=== PATIENT | male | born 1955 | race Caucasian/White ===

== ENCOUNTER 2018-07-23 11:02 | Outpatient (CLI) | payer OTHER ==
[~2018-07-23 11:02] MED LIST: Iopamidol 370 76% 100 ML VIAL ONE
[2018-07-23 11:39] LABS: Estimated GFR-MDRD - POC Greater than 90
--- NOTE | 2018-07-24 08:02 | CT ---
CT Abdomen Pelvis W Con: 07/23/2018 12:00 AM CLINICAL INFORMATION: Right flank pain for 4 months and weight loss COMPARISON: None. Procedure: Multiple contiguous axial images were obtained and a CT of the abdomen and pelvis with IV contrast. O ral contrast was administered. Coronal reformats were performed. FINDINGS: Lower Chest: There is a small to moderate right pleural effusion with adjacent atelectasis. Abdomen: Liver: within normal limits. Bile Ducts: Normal caliber. Gallbladder: No calcified gallstones. Normal caliber wall. Pancreas: within normal limits. Spleen: within normal limits. Adrenals: within normal limits. Kidneys: within normal limits. Pelvis: Reproductive Organs: No pelvic masses. Ureters: within normal limits. Bladder: within normal limits. Peritoneum: No ascites or free air, no fluid collection. Bowel: Normal caliber. Mesentery and Retroperitoneum: No enlarged mesenteric or retroperitoneal lymph nodes. Vessels: Atherosclerotic calcifications. Abdominal Wall: within normal limits. Bones: within normal limits. IMPRESSION: 1. No evidence of acute intraabdominal\pelvic abnormality. 2. Right pleural effusion with adjacent atelectasis
== END 2018-07-23 11:03 | disposition home or self-care (01) ==
LOC: BICCT 11:02
DX: R10.9 Unspecified abdominal pain (principal); R63.4 Abnormal weight loss; J90 Pleural effusion, not elsewhere classified; J98.11 Atelectasis
CPT/HCPCS: 74177; 82565; Q9967

== ENCOUNTER 2018-09-15 08:54 | Outpatient (CLI) | payer OTHER | END 2018-09-15 08:55 | disposition home or self-care (01) | PROVIDERS: ATTEND Specialist | DX: I69.891 Dysphagia following other cerebrovascular disease (principal); R13.12 Dysphagia, oropharyngeal phase; R13.13 Dysphagia, pharyngeal phase | CPT/HCPCS: 74230 ==

== ENCOUNTER 2018-09-16 13:20 | Outpatient (CLI) | payer OTHER ==
[2018-09-16 14:51] LABS: Estimated GFR-MDRD - POC Greater than 90
--- NOTE | 2018-09-16 15:35 | MRI ---
EXAM BRAIN MRI WITH AND WITHOUT CONTRAST: 09/16/18 HISTORY: Difficulty swallowing x1.5 years. Symptoms have worsened recently. COMPARISON: None. TECHNIQUE: Brain MRI is performed with and without intravenous gadolinium administration. Multisequential, multi planar imaging is performed. FINDINGS: The calvarium has a normal T1 narrow signal intensity. No hemorrhage on the axial gradient echo sequ ence. No parenchymal mass, mass effect or midline shift. Brain volume, age appropriate. Cortical oakley-white matter differentiation is preserved. Ventricles and sulci are patent and symmetric. No significant T2 or FLAIR white matter hyperintensity. Central arterial flow voids are maintained. Associated diffusion. Adequate aeration of the visualized sinuses and mastoid air cells. Minimal paranasal sinuses mucosal thickening. No pathologic enhancement of the brain parenchyma. IMPRESSION: Unremarkable pre and postcontrast brain MRI. POS: OFF
== END 2018-09-16 13:21 | disposition home or self-care (01) ==
LOC: BICMRI 13:20
PROVIDERS: ATTEND Specialist
DX: R13.19 Other dysphagia (principal)
CPT/HCPCS: 70553; 82565

== ENCOUNTER 2018-10-01 11:12 | Outpatient (CLI) | payer OTHER ==
--- NOTE | 2018-10-02 07:21 | RAD ---
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 Right lung infiltrate. COMPARISON: CT of abdomen performed 07/23/2018. FINDINGS: Heart size is within normal limits. There is a large right-sided pleural effusion present w ith associated atelectasis. There some minimal linear change in the left base which could represent atelectasis versus minimal infiltrate. There are no definitive features of TB. IMPRESSION: Large right pleural effusion with right lower lobe atelectasis. Minimal parenchymal hoff es within the left base consistent with atelectasis versus minimal infiltrate.
== END 2018-10-01 11:13 | disposition home or self-care (01) ==
LOC: BICRAD 11:12
PROVIDERS: ATTEND Internal Medicine Rheumatology
DX: Z11.1 Encounter for screening for respiratory tuberculosis (principal); M30.1 Polyarteritis with lung involvement [Churg-Strauss]; J45.909 Unspecified asthma, uncomplicated; R91.8 Other nonspecific abnormal finding of lung field; J90 Pleural effusion, not elsewhere classified; J98.11 Atelectasis
CPT/HCPCS: 71046

== ENCOUNTER 2019-01-27 06:03 | Day surgery (SDC) | payer OTHER ==
[2019-01-22 10:09] VITALS: BMI 24.9
[2019-01-27] MEDS ORDERED: Fentanyl 100 MCG/2 ML VIAL ONE (06:31)
[2019-01-27] MEDS ORDERED: Midazolam HCl 2 mg/2 ml Vial ONE (06:31)
[2019-01-27] MEDS ORDERED: Bupivacaine HCl 0.5%/Epinephrine 1:200,000/PF 30 ml Vial ONE (06:34)
[2019-01-27] MEDS ORDERED: Lidocaine 2% PF 5 ML VIAL ONE (06:34)
[2019-01-27] MEDS ORDERED: Bacitracin 1 PK ONE (08:54)
--- NOTE | 2019-01-27 13:02 | OP ---
DATE OF PROCEDURE: 01/27/2019 PREOPERATIVE DIAGNOSES: 1. Soft tissue mass, multiple. 2. History of eosinophilic granulomatosis with polyangiitis. POSTOPERATIVE DIAGNOSES: 1. Soft tissue mass, multiple. 2. History of eosinophilic granulomatosis with polyangiitis. PROCEDURE PERFORMED: Excision of soft tissue mass, left arm for biopsy. ANESTHESIA: General. ESTIMATED BLOOD LOSS: Minimal. COMPLICATIONS: None. SPECIMEN: Left arm mass. INDICATION: The patient is a 63-year-old male with a history of previous diagnosis of eosinophilic granulomatosis with polyangiitis. This is currently associated with dysphagia, pleural effusion, and pneumonia. He has multiple soft tissue masses in bilateral upper extremities. This excision today is for definitive diagnosis. DESCRIPTION OF PROCEDURE: The patient was taken to the operating room and laid supine on the operating room table. After general anesthetic was obtained, the left arm was prepped and draped in a sterile fashion. An elliptical incision was used to ellipse out the skin, subcu fat all the way down to the muscle, where this soft tissue mass was in the left axilla. This specimen was sent fresh to Pathology. The wound was irrigated. Local anesthetic was applied. The wound was closed using 3-0 Vicryl, 4-0 Monocryl, and Dermabond. The patient was sent to Recovery in stable condition. All instrument counts, needle counts, and lap counts were correct. Job ID: [id number]
[2019-01-27] MEDS ORDERED: Ondansetron PF 4 MG/2 ML Vial ONE (15:10)
[2019-01-27] MEDS ORDERED: Lidocaine 1% PF 5 ML VIAL ONE (15:10)
[2019-01-27] MEDS ORDERED: PHENYLEPHRINE-NS 100 MCG/ML 10 ML SYRINGE ONE (15:10)
[2019-01-27] MEDS ORDERED: PROPOFOL 200 MG/20 ML VIAL ONE (15:10)
[2019-01-27] MEDS ORDERED: Dexamethasone 20 MG/5 ML VIAL ONE (15:10)
--- NOTE | 2019-02-02 06:30 | PQF ---
[facility] POST DISCHARGE CLINICAL DOCUMENTATION IMPROVEMENT CLARIFICATION FORM l Todays Date: 01/30/19 l Patients Name SERGIO AVALOS l l Admit Date 01/27/18 l Disch Date 01/27/18 Security Supervisor Name Clair Ramirez Email: [email or web address] Cell: [phone] To be completed by Security Supervisor: Present Clinical Indicators - Signs / Symptoms Results and Location in Medical Record [ ] Documentation of: [ ] [ ] Documentation of: [ ] [ ] Documentation of: [ ] [ ] Documentation of: [ ] [ ] Risks [ ] [ ] [ ] Treatment [ ] Need to verify margin and excision size [ ] [ ] To be completed by Physician: DR. MODI, GABRIEL VIVAR MD The documentation in this patients record requires clarification to ensure coding compliance and accuracy. Check the appropriate box and include in your discharge summary. [ ] [ ] [ ] [ ] Please check this box if this does not apply to this patient [ ] Unable to determine [ ] Other diagnosis: Review the following information and exercise your independent professional judgment in responding to the clarification. Based upon the clinical findings, risk factors, and treatment, please clarify if you are treating one of the above probable or suspected diagnoses. Physician Signature: Date Time NAKITA
== END 2019-01-27 09:30 | disposition home or self-care (01) ==
LOC: SDC 06:03
PROVIDERS: ATTEND Surgery
DX: D17.22 Benign lipomatous neoplasm of skin and subcutaneous tissue of left arm (principal); M30.1 Polyarteritis with lung involvement [Churg-Strauss]; I10 Essential (primary) hypertension; D64.9 Anemia, unspecified; Z91.018 Allergy to other foods; Z91.040 Latex allergy status; Z79.82 Long term (current) use of aspirin; Z79.899 Other long term (current) drug therapy
CPT/HCPCS: 88305; J0670; J0690; J1100; J2001; J2250; J2405; J2704; J3010

== ENCOUNTER 2019-06-18 14:19 | Outpatient (CLI) | payer OTHER ==
--- NOTE | 2019-06-18 16:27 | MRI ---
MRI Upper Ext Jt Lt WO Con History: Mass of muscle of left upper extremity Comparison: None. Findings: Bones: No fracture. No malalignment. Muscles: There is abnormal myofascial edema along the anterior margin the biceps muscle. There is als o abnormal myofascial edema of the brachialis. The distal biceps tendon and the proximal biceps tendon are not fully interrogated. Most of the myofascial muscle edema of the biceps is along the superior margin of the muscle. There i s, however, fluid tracking along the distal tendon although the insertion is not evaluated on this exam and there is concern for at least a partial tear of the distal tendon. The triceps musculature is intact. Abnormal edema along the lacertus fibrosis. Impression: 1. Incompletely evaluated aspect of the upper arm. There is anterior myofascial edema of the biceps m uscle with edema tracking along the distal and proximal tendon. This may reflect a proximal or distal tendon rupture. Myofascial tear is also possibility versus myositis. Given the edema along the the lacertus fibrosis, distal tendinous injury is felt most likely although the elbow was not interrogated. 2. No definite intramuscular nor soft tissue mass, although evaluation is limited without intravenous contrast.
== END 2019-06-18 14:20 | disposition home or self-care (01) ==
LOC: TBSIIMAG 14:19
PROVIDERS: ATTEND Internal Medicine Rheumatology
DX: M62.89 Other specified disorders of muscle (principal); R60.0 Localized edema

== ENCOUNTER 2019-09-23 09:28 | Outpatient (CLI) | payer OTHER ==
--- NOTE | 2019-09-23 11:40 | MRI ---
MRI OF LEFT SHOULDER: DATE: 09/23/2019. PROVIDED CLINICAL HISTORY: Shoulder pain. FINDINGS: Comparison is made with the examination performed 06/18/2019 of the left humerus. Evaluation is limited by patient motion. The components of the rotator cuff appear intact. The long-head biceps tendon appears intact and nor william located. The amount of fluid within the glenohumeral joint appears physiologic. The glenoid labrum and glenoh umeral articular cartilage are suboptimally evaluated in the absence of joint distention but appear g rossly normal. The glenohumeral joint capsule and retrocoracoid fat appear normal. There is no sign ificant subacromial subdeltoid bursal fluid. Acromioclavicular joint osteoarthrosis is demonstrated with mild mass effect upon the subjacent supra spinatus. Stress related periarticular marrow edema is also demonstrated. There is extensive, partially visualized noncircumscribed fluid signal intensity seen involving the m uscular fascia of the anterior proximal arm, similar to that visualized on the prior MRI. This exten ds proximally to involve the pectoralis muscular fascia distally as well. The protocol was not optim ized for evaluation of the integrity of the pectoralis major tendon insertion which is incompletely v isualized on the axial images. No convincing evidence for tendon disruption on the sagittal or coron al images. Regional marrow and muscular signal appear otherwise unremarkable. IMPRESSION: 1. Persistent nonspecific myofascial fluid signal intensity involving the anterior proximal arm and pectoralis muscular fascia, nonspecific. Correlation for eosinophilic fasciitis or other infectious/ inflammatory fasciitis is recommended. 2. Acromioclavicular joint osteoarthrosis with associated mild stress-related marrow edema. POS: EZEKIEL
--- NOTE | 2019-09-23 13:49 | MRI ---
MRI LEFT ELBOW 09/23/19 PROVIDED CLINICAL HISTORY: Pain. FINDINGS: Correlation is made with the MRI of the left arm, 06/18/19, and MRI left shoulder performed concurrent ly. There is persistent abnormal fluid signal intensity demonstrated involving the muscular fascia of the anterior distal upper arm musculature and extending into the intramuscular fat planes of the antecub ital fossa and into the location of the bicipital radial bursa. There is persistent overlying noncirc umscribed fluid signal intensity within the subcutaneous adipose layer in this location as well. The triceps musculature appears spared. The deep and posterior muscular fascia of the anterior compartmen t arm musculature appears spared. The biceps, brachialis and triceps insertions appear intact. The common extensor and common flexor te ndon origins appear intact. The medial and lateral elbow ligaments appear intact. No focal articular cartilage defect is apparent. The amount of fluid within the elbow joint appears p hysiologic. The courses of the regional major neurovascular structures appear unremarkable. IMPRESSION: 1. Abnormal signal intensity involving the muscular fascia of the anterior compartment of the ar m extending to involve the more proximal arm on separately performed MRI of shoulder, with associated signal alteration within the subcutaneous adipose layer. Findings are most suggestive of an infectio us or inflammatory fasciitis. 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 2. No evidence for biceps tendon injury. POS: EZEKIEL
== END 2019-09-23 09:29 | disposition home or self-care (01) ==
LOC: BICMRI 09:28
PROVIDERS: ATTEND Orthopaedic Surgery
DX: M75.02 Adhesive capsulitis of left shoulder (principal); S46.212A Strain of muscle, fascia and tendon of other parts of biceps, left arm, initial encounter; R60.0 Localized edema; M19.012 Primary osteoarthritis, left shoulder

== ENCOUNTER 2021-11-02 11:23 | Outpatient (CLI) | payer MEDICARE, OTHER | END 2021-11-02 11:24 | disposition home or self-care (01) | LOC: BICRAD 11:23 | PROVIDERS: ATTEND Internal Medicine Rheumatology | DX: M25.551 Pain in right hip (principal) ==

== ENCOUNTER 2022-06-05 13:14 | Outpatient (CLI) | payer MEDICARE | END 2022-06-05 13:15 | disposition home or self-care (01) | LOC: BICCT 13:14 | PROVIDERS: ATTEND Allergy & Immunology | DX: R05.3 Chronic cough (principal); J90 Pleural effusion, not elsewhere classified; J98.11 Atelectasis | CPT/HCPCS: 71250 ==

== ENCOUNTER 2023-10-17 20:00 | Inpatient (IN) | payer MEDICARE, OTHER ==
[2023-10-17 21:29] LABS: #Basophils 0.03 10x3/uL (0.0-0.2); %Basophils 0.3 % (0.0-1.0); %Eosinophils 0.6 % (0.0-10.0); %Lymphocytes 14.6 % (21.0-51.0); %Monocytes 7.7 % (0.0-10.0); %Neutrophils 76.1 % (42.0-75.0); Hemoglobin 12.1 g/dL (14.0-18.0); Mean Corpuscular HGB CONC 31.8 g/dL (32.0-36.0); Mean Corpuscular Hemoglobin 28.2 pg (27.0-31.0); Mean Corpuscular Volume 88.6 fL (78.0-98.0); Mean Platelet Volume 9.3 fL (7.4-10.4); Platelet Count 332 10x3/uL (130-400); RBC Distribution Width 16.1 % (11.5-14.5); Red Blood Cell (RBC) Count 4.29 mill/uL (4.70-6.10)
[2023-10-17 21:42] LABS: ALT (SGPT) 22 U/L (8-55); AST (SGOT) 22 U/L (5-34); Albumin 3.7 g/dL (3.4-4.8); Alkaline Phosphatase 80 U/L (40-110); Anion Gap 17 mmol/L (10-20); BUN (Urea Nitrogen) 33 mg/dL (8.4-25.7); Bilirubin, Total 0.4 mg/dL (0.2-1.2); Calc. Creatinine Clearance 0 mL/min (70-130); Calcium 9.4 mg/dL (7.8-10.44); Carbon Dioxide 27 mmol/L (23-31); Chloride 99 mmol/L (98-107); Estimated GFR 60; Globulin 4.2 g/dL (2.4-3.5); Glucose 108 mg/dL (80-115); Potassium 3.9 mmol/L (3.5-5.1); Protein, Total 7.9 g/dL (5.8-8.1); Sodium 139 mmol/L (136-145)
[2023-10-17 21:48] LABS: Troponin I Less than 0.010 ng/mL (< 0.028)
[2023-10-17] MEDS ORDERED: Morphine 4 MG/ML VIAL SLOW IVP PRN (23:41)
[2023-10-17] MEDS ORDERED: Dextrose 5% in Water 1,000 ML IV PRN (23:41)
[2023-10-17] MEDS ORDERED: hydrALAZINE 20 MG/ML VIAL SLOW IVP PRN (23:41)
[2023-10-17] MEDS ORDERED: Ondansetron PF 4 MG/2 ML Vial IVP PRN (23:41)
[2023-10-17] MEDS ORDERED: traMADol HCl 50 MG TAB PO PRN (23:41)
[2023-10-17] MEDS ORDERED: Glucagon 1 MG/ML KIT IM PRN (23:41)
[2023-10-17] MEDS ORDERED: Dextrose 50% Abboject 50 ML SYRINGE SLOW IVP PRN (23:41)
[2023-10-18] MEDS ORDERED: Acetaminophen 325 MG TAB ONE (01:58)
[2023-10-18] MEDS: Acetaminophen 325 MG TAB PO PRN (02:03)
[2023-10-18 02:56] LABS: #Basophils 0.04 10x3/uL (0.0-0.2); %Basophils 0.5 % (0.0-1.0); %Eosinophils 0.9 % (0.0-10.0); Hematocrit 36.6 % (42.0-52.0); Hemoglobin 12.1 g/dL (14.0-18.0); Mean Corpuscular HGB CONC 33.1 g/dL (32.0-36.0); Mean Corpuscular Hemoglobin 28.9 pg (27.0-31.0); Mean Corpuscular Volume 87.4 fL (78.0-98.0); Mean Platelet Volume 9.1 fL (7.4-10.4); Platelet Count 332 10x3/uL (130-400); RBC Distribution Width 16.1 % (11.5-14.5); Red Blood Cell (RBC) Count 4.19 mill/uL (4.70-6.10)
[2023-10-18 03:45] LABS: Anion Gap 18 mmol/L (10-20); BUN (Urea Nitrogen) 31 mg/dL (8.4-25.7); Calc. Creatinine Clearance 57 mL/min (70-130); Calcium 9.3 mg/dL (7.8-10.44); Carbon Dioxide 27 mmol/L (23-31); Chloride 98 mmol/L (98-107); Estimated GFR 54; Glucose 111 mg/dL (80-115); Potassium 3.9 mmol/L (3.5-5.1); Sodium 139 mmol/L (136-145)
[2023-10-18] MEDS: TETANUS, DIPHTHERIA TOX,ADULT (TDVAX) 0.5 ML VIAL IM ONE (03:46)
[2023-10-18] MEDS: Famotidine/PF 20 mg/2ml Vial SLOW IVP SCH (18:37)
[2023-10-18] MEDS ORDERED: MEPOLIZUMAB 100 MG/ML SC SCH (19:00)
[2023-10-18] MEDS: Ipratropium Bromide 2.5 ml Neb NEB SCH (19:26)
[2023-10-18] MEDS: cycloSPORINE, Modified 100 MG CAP PO SCH (21:39)
[2023-10-18] MEDS: Venlafaxine HCl XR 150 MG CAP PO SCH (21:40)
[2023-10-18] MEDS: Pantoprazole DR 40 MG TAB PO SCH (21:40)
[2023-10-18] MEDS: Iron Polysaccharides Complex 150 MG CAP PO SCH (21:40)
[2023-10-19 04:01] VITALS: TEMP 97.8
[2023-10-19] MEDS: Levothyroxine Sodium 50 MCG TAB PO SCH (05:39)
[2023-10-19] MEDS: Mometasone 200 MCG/Formoterol 5 MCG 120 PUFF INHALER INH SCH (07:36)
[2023-10-19] MEDS: Tamsulosin HCl 0.4 MG CAP PO SCH (08:42)
[2023-10-19 13:46] VITALS: BP 113/75
== END 2023-10-19 15:48 | disposition home or self-care (01) | DRG 83 ==
LOC: ERS 20:00 → 2SE 23:13 → INTOOBSV 23:41 → ERHOLD 23:41 → 2SE 10-18 09:33 → OBSVTOIN 10-18 18:36
PROVIDERS: ADMIT Surgery; ATTEND Surgery
DX: S06.5XAA Traumatic subdural hemorrhage with loss of consciousness status unknown, initial encounter (principal); J90 Pleural effusion, not elsewhere classified; N17.9 Acute kidney failure, unspecified; S42.022A Displaced fracture of shaft of left clavicle, initial encounter for closed fracture; S00.03XA Contusion of scalp, initial encounter; E11.9 Type 2 diabetes mellitus without complications; I10 Essential (primary) hypertension; E03.9 Hypothyroidism, unspecified; J45.909 Unspecified asthma, uncomplicated; F32.A Depression, unspecified; W19.XXXA Unspecified fall, initial encounter; N40.0 Benign prostatic hyperplasia without lower urinary tract symptoms; Z98.890 Other specified postprocedural states; Z90.79 Acquired absence of other genital organ(s); Z91.018 Allergy to other foods; Z79.82 Long term (current) use of aspirin; Z79.899 Other long term (current) drug therapy; Z79.890 Hormone replacement therapy
CPT/HCPCS: 36415; 70450; 71045; 72125; 80048; 80053; 84443; 84484; 85025; 93005; 94640

== ENCOUNTER 2024-04-24 14:34 | Outpatient (CLI) | payer MEDICARE | END 2024-04-24 14:35 | disposition home or self-care (01) | LOC: BICRAD 14:34 | PROVIDERS: ATTEND Family Medicine | DX: J90 Pleural effusion, not elsewhere classified (principal) | CPT/HCPCS: 71046 ==

== ENCOUNTER 2024-04-29 10:53 | Outpatient (CLI) | payer MEDICARE | END 2024-04-29 10:54 | disposition home or self-care (01) | LOC: BICCT 10:53 | PROVIDERS: ATTEND Family Medicine | DX: J90 Pleural effusion, not elsewhere classified (principal); J98.11 Atelectasis | CPT/HCPCS: 36415; 71260; 82565 ==

== ENCOUNTER 2024-05-07 14:32 | Emergency (ER) | payer MEDICARE ==
[2024-05-07 16:41] LABS: #Basophils 0.04 10x3/uL (0.0-0.2); %Basophils 0.3 % (0.0-1.0); %Eosinophils 0.3 % (0.0-10.0); %Lymphocytes 7.7 % (21.0-51.0); %Monocytes 6.1 % (0.0-10.0); %Neutrophils 84.6 % (42.0-75.0); Hematocrit 40.7 % (42.0-52.0); Hemoglobin 12.7 g/dL (14.0-18.0); Mean Corpuscular HGB CONC 31.2 g/dL (32.0-36.0); Mean Corpuscular Hemoglobin 26.2 pg (27.0-31.0); Mean Corpuscular Volume 83.9 fL (78.0-98.0); Mean Platelet Volume 9.1 fL (7.4-10.4); Platelet Count 360 10x3/uL (130-400); RBC Distribution Width 16.4 % (11.5-14.5); Red Blood Cell (RBC) Count 4.85 mill/uL (4.70-6.10)
[2024-05-07 16:58] LABS: Anion Gap 17 mmol/L (10-20); BUN (Urea Nitrogen) 25 mg/dL (8.4-25.7); Calc. Creatinine Clearance 0 mL/min (70-130); Carbon Dioxide 27 mmol/L (23-31); Chloride 97 mmol/L (98-107); Potassium 4.4 mmol/L (3.5-5.1); Sodium 137 mmol/L (136-145)
[2024-05-07 16:59] LABS: ALT (SGPT) 25 U/L (Less than 45); AST (SGOT) 25 U/L (11-34); Albumin 4.1 g/dL (3.1-4.5); Alkaline Phosphatase 85 U/L (40-110); Bilirubin, Total 0.5 mg/dL (0.3-1.2); Estimated GFR 66; Globulin 3.9 g/dL (2.4-3.5); Glucose 90 mg/dL (80-115); Lipase 15 U/L (8-78)
[2024-05-07 17:03] LABS: Troponin I Less than 0.010 ng/mL (< 0.028)
[2024-05-07 17:38] LABS: Bacteria/HPF None Seen HPF (None Seen); Bilirubin Negative (Negative); Blood, Urine Negative (Negative); CAUTI Indications for Culture Dysuria,urgency,freq; Clarity Clear (Clear); Glucose, Urine (Dipstick) Normal (Negative); Ketone, Urine Negative (Negative); Leukocyte Negative Leu/uL (Negative); Nitrite Negative (Negative); Protein, Urine (Dipstick) 10 mg/dL (Neg-Trace); RBC/HPF 0-3 HPF (0-3); Specific Gravity, Urine 1.024 (1.002-1.036); Squamous Epithelial None Seen HPF (0-3); Urobilinogen Normal mg/dL (Less than 2); WBC/HPF 0-3 HPF (0-3)
[2024-05-07 17:39] LABS: Urine Culture Reflex No No
[2024-05-07] MEDS ORDERED: Ketorolac Tromethamine 30 MG (1 mL) VIAL ONE (19:07)
== END 2024-05-07 20:47 | disposition home or self-care (01) ==
LOC: ERS 14:32
DX: R10.11 Right upper quadrant pain (principal); E11.9 Type 2 diabetes mellitus without complications; I10 Essential (primary) hypertension
CPT/HCPCS: 76705; 80053; 81001; 83690; 84484; 85025; 93005; J1885; 36415; 96372